=== PATIENT | male | born 1945 | race Caucasian/White ===

== ENCOUNTER 2017-11-09 21:08 | Inpatient (IN) ==
[2017-11-09] MEDS ORDERED: HYOSCYAMINE 0.5 MG/1 ML AMP IV STA (22:20)
[2017-11-09] MEDS ORDERED: SODIUM CHLORIDE 0.9% 500 ML IV STA (22:20)
[2017-11-09] MEDS ORDERED: PANTOPRAZOLE 40 MG VIAL IV STA (22:20)
[2017-11-09 23:11] LABS: Basophils % 0.1 % (0.0-0.8); Hematocrit 41.1 VOL% (42.0-52.0); Hemoglobin 13.9 GM/DL (14.0-18.0); Immature Granulocytes % 0.3 %; Immature Granulocytes Absolute 0.05 #; Lymphocytes # 0.5 10*3/uL (1.4-4.0); Mean Corpuscular HGB Conc 33.8 GM/DL (32-36); Mean Corpuscular Hemoglobin 30 PG (27-34); Mean Platelet Volume 9.5 FL (9.6-12.0); Monocytes # 1.4 10*3/uL (0.11-0.8); Monocytes % 8.7 % (1.7-12.7); Neutrophils # 13.6 10*3/uL (1.4-7.4); Neutrophils % 87.9 % (38.7-73.9); Platelet Count 292 T/CUMM (130-400); Red Blood Count 4.62 MC/CUMM (3.8-5.5); Red Cell Distribution Width 12.9 % (9.3-17.3); White Blood Count 15.5 T/CUMM (4-12)
[2017-11-09 23:23] LABS: Apearance,Urine CLEAR (Clear); Bilirubin,Urine Negative (Negative); Blood, Urine Negative (Negative); Glucose,Urine (UA) Negative (Negative); Ketones,Urine Negative (Negative); Mucus,Urine Occasional /LPF (Occasional); Nitrite,Urine Negative (Negative); Protein,Urine Negative; Urine Color Amber (Yellow); Urine Specific Gravity 1.008 (1.001-1.035); Urine Urobilinogen < 2.0 EU/DL (0.2-1.0); WBC,Urine 1 /HPF (0-6)
[2017-11-09 23:31] LABS: Alanine Aminotransferase 300 U/L (16-61); Albumin 3.7 G/DL (3.4-5.0); Alkaline Phosphatase 444 U/L (45-117); Aspartate Amino Transferase 173 U/L (0-37); Blood Urea Nitrogen 17 MG/DL (7-18); Glucose 113 MG/DL (74-106); Osmolality,Calculated 277.7 MOS/KG (273-304); Potassium 3.9 MMOL/L (3.5-5.1); Sodium 138 MMOL/L (136-145); Total Protein 7.8 G/DL (6.4-8.3); Troponin I Only < 0.015 NG/ML (0.00-0.045)
[2017-11-10 00:27] LABS: Band Neutrophils 2 % (0-10); Lymphocytes 2 % (20-55); Segmented Neutrophils 88 % (50-85)
[2017-11-10 00:28] LABS: Hypochromasia Slight; Ovalocytes 1+; Platelet Estimate Normal
[2017-11-10 00:29] LABS: Total Cells Counted 100
[2017-11-10] MEDS ORDERED: PIPERACILLIN/TAZOBACTAM 4,500 MG in SODIUM CHLORIDE 0.9% 100 ML IV STA (01:09)
[2017-11-10] MEDS ORDERED: ONDANSETRON 4 MG/2 ML VIAL IV PRN (01:33)
[2017-11-10] MEDS: SODIUM CHLORIDE 0.9% 1,000 ML IV SCH ×2 (03:16→15:07)
[2017-11-10] MEDS: LEVOFLOXACIN INJ 500 MG in PREMIX 1 EACH IV SCH (03:28)
[2017-11-10 05:35] LABS: Basophils % 0.1 % (0.0-0.8); Hematocrit 35.9 VOL% (42.0-52.0); Hemoglobin 12.1 GM/DL (14.0-18.0); Immature Granulocytes % 0.4 %; Immature Granulocytes Absolute 0.05 #; Lymphocytes # 0.7 10*3/uL (1.4-4.0); Lymphocytes % 6.1 % (21.2-54.2); Mean Corpuscular HGB Conc 33.7 GM/DL (32-36); Mean Corpuscular Hemoglobin 30 PG (27-34); Mean Corpuscular Volume 89.5 FL (87-102); Monocytes # 0.9 10*3/uL (0.11-0.8); Monocytes % 7.1 % (1.7-12.7); Neutrophils # 10.4 10*3/uL (1.4-7.4); Neutrophils % 86.3 % (38.7-73.9); Platelet Count 260 T/CUMM (130-400); Red Blood Count 4.01 MC/CUMM (3.8-5.5); Red Cell Distribution Width 12.7 % (9.3-17.3)
[2017-11-10 06:10] LABS: Albumin 2.9 G/DL (3.4-5.0); Bilirubin,Total 4.6 MG/DL (0.2-1.0); Calcium 8.3 MG/DL (8.5-10.1); Osmolality,Calculated 281.4 MOS/KG (273-304); VLDL CHOLESTEROL 13.2 MG/DL
[2017-11-10] MEDS: PANTOPRAZOLE 40 MG VIAL IV SCH (09:55)
[2017-11-10] MEDS: RAMIPRIL 5 MG CAPSULE PO SCH (09:57)
[2017-11-10] MEDS: METOPROLOL TARTRATE 100 MG TABLET PO SCH (09:57)
[2017-11-10] MEDS: MORPHINE 4 MG/1 ML VIAL IV PRN (09:58)
[2017-11-10] MEDS ORDERED: ASCORBIC ACID 500 MG TABLET PO SCH (21:00)
[2017-11-10] MEDS: ASCORBIC ACID 500 MG TABLET PO SCH (21:36)
[2017-11-10] MEDS: MAGNESIUM CHLORIDE 64 MG TABLET PO SCH (21:36)
[2017-11-11] MEDS: SODIUM CHLORIDE 0.9% 1,000 ML IV SCH ×3 (01:07→17:38)
[2017-11-11] MEDS: LEVOFLOXACIN INJ 500 MG in PREMIX 1 EACH IV SCH (02:55)
[2017-11-11 04:56] LABS: Basophils % 0.3 % (0.0-0.8); Eosinophils % 0.3 % (0.00-10.9); Hematocrit 33.8 VOL% (42.0-52.0); Hemoglobin 11.2 GM/DL (14.0-18.0); Immature Granulocytes % 0.6 %; Immature Granulocytes Absolute 0.04 #; Lymphocytes # 0.7 10*3/uL (1.4-4.0); Lymphocytes % 10.7 % (21.2-54.2); Mean Corpuscular HGB Conc 33.1 GM/DL (32-36); Mean Corpuscular Hemoglobin 30 PG (27-34); Mean Corpuscular Volume 90.1 FL (87-102); Mean Platelet Volume 9.9 FL (9.6-12.0); Monocytes # 0.7 10*3/uL (0.11-0.8); Monocytes % 9.7 % (1.7-12.7); Neutrophils # 5.4 10*3/uL (1.4-7.4); Neutrophils % 78.4 % (38.7-73.9); Platelet Count 244 T/CUMM (130-400); Red Blood Count 3.75 MC/CUMM (3.8-5.5); Red Cell Distribution Width 13.1 % (9.3-17.3); White Blood Count 6.9 T/CUMM (4-12)
[2017-11-11 05:28] LABS: Calcium 7.9 MG/DL (8.5-10.1); Osmolality,Calculated 280.3 MOS/KG (273-304); Potassium 3.5 MMOL/L (3.5-5.1)
[2017-11-11 07:53] LABS: Albumin 2.7 G/DL (3.4-5.0); Bilirubin,Direct 0.86 MG/DL (0.0-0.20); Bilirubin,Indirect 0.7 MG/DL (0.0-1.0); Bilirubin,Total 1.6 MG/DL (0.2-1.0); Total Protein 5.7 G/DL (6.4-8.3)
[2017-11-11] MEDS: ASPIRIN EC 81 MG TABLET PO SCH (09:52)
[2017-11-11] MEDS: MAGNESIUM CHLORIDE 64 MG TABLET PO SCH ×2 (09:52→21:07)
[2017-11-11] MEDS: METOPROLOL TARTRATE 100 MG TABLET PO SCH (09:52)
[2017-11-11] MEDS: RAMIPRIL 5 MG CAPSULE PO SCH (09:52)
[2017-11-11] MEDS: ASCORBIC ACID 500 MG TABLET PO SCH ×2 (09:52→21:07)
[2017-11-11] MEDS: PANTOPRAZOLE 40 MG VIAL IV SCH (11:09)
[2017-11-11] MEDS: LACTATED RINGERS 1,000 ML IV SCH (13:00)
[2017-11-12] MEDS: LEVOFLOXACIN INJ 500 MG in PREMIX 1 EACH IV SCH (03:37)
[2017-11-12 03:40] LABS: Albumin 2.7 G/DL (3.4-5.0); Bilirubin,Direct 0.65 MG/DL (0.0-0.20); Bilirubin,Indirect 0.5 MG/DL (0.0-1.0); Bilirubin,Total 1.1 MG/DL (0.2-1.0); Total Protein 5.8 G/DL (6.4-8.3)
[2017-11-12] MEDS: METOPROLOL TARTRATE 100 MG TABLET PO SCH (09:37)
[2017-11-12] MEDS: ASPIRIN EC 81 MG TABLET PO SCH (09:37)
[2017-11-12] MEDS: RAMIPRIL 5 MG CAPSULE PO SCH (09:37)
[2017-11-12] MEDS: MAGNESIUM CHLORIDE 64 MG TABLET PO SCH ×2 (09:37→21:11)
[2017-11-12] MEDS: ASCORBIC ACID 500 MG TABLET PO SCH ×2 (09:37→21:11)
[2017-11-12] MEDS: PANTOPRAZOLE 40 MG VIAL IV SCH (09:41)
[2017-11-12] MEDS: SODIUM CHLORIDE 0.9% 1,000 ML IV SCH ×2 (12:05→21:12)
[2017-11-12] MEDS: LACTATED RINGERS 1,000 ML IV SCH (12:06)
[2017-11-13] MEDS: LEVOFLOXACIN INJ 500 MG in PREMIX 1 EACH IV SCH (03:20)
[2017-11-13 06:03] LABS: Osmolality,Calculated 284.1 MOS/KG (273-304); Potassium 3.5 MMOL/L (3.5-5.1)
[2017-11-13 09:00] LABS: Basophils % 0.3 % (0.0-0.8); Eosinophils % 0.3 % (0.00-10.9); Hemoglobin 13.4 GM/DL (14.0-18.0); Immature Granulocytes % 0.2 %; Immature Granulocytes Absolute 0.01 #; Lymphocytes % 16.9 % (21.2-54.2); Mean Corpuscular HGB Conc 35.3 GM/DL (32-36); Mean Corpuscular Hemoglobin 30 PG (27-34); Mean Corpuscular Volume 85.6 FL (87-102); Mean Platelet Volume 9.7 FL (9.6-12.0); Monocytes # 0.5 10*3/uL (0.11-0.8); Monocytes % 7.6 % (1.7-12.7); Neutrophils # 4.6 10*3/uL (1.4-7.4); Neutrophils % 74.7 % (38.7-73.9); Platelet Count 307 T/CUMM (130-400); Red Blood Count 4.44 MC/CUMM (3.8-5.5); Red Cell Distribution Width 13.2 % (9.3-17.3); White Blood Count 6.2 T/CUMM (4-12)
[2017-11-13] MEDS ORDERED: INDOMETHACIN SUPP 50 MG SUPP RECTAL ONE (09:00)
[2017-11-13 09:23] LABS: PT Patient Result 10.3 SECS
[2017-11-13] MEDS ORDERED: MIDAZOLAM 2 MG/2 ML VIAL ONE (09:47)
[2017-11-13] MEDS: SODIUM CHLORIDE 0.9% 1,000 ML IV SCH (09:47)
[2017-11-13] MEDS ORDERED: fentaNYL 100 MCG/2 ML VIAL ONE (09:47)
[2017-11-13] MEDS: PANTOPRAZOLE 40 MG VIAL IV SCH (10:22)
[2017-11-13] MEDS ORDERED: ONDANSETRON 4 MG/2 ML VIAL ONE (10:45)
[2017-11-13] MEDS ORDERED: PROPOFOL 200 MG/20 ML VIAL IV ONE (10:45)
[2017-11-13] MEDS ORDERED: ROCURONIUM 100 MG/10 ML VIAL IV ONE (10:45)
[2017-11-13] MEDS ORDERED: LIDOCAINE 1% 5 ML VIAL ONE (10:45)
[2017-11-13] MEDS ORDERED: SUCCINYLCHOLINE 200 MG/10 ML VIAL ONE (10:45)
[2017-11-13] MEDS ORDERED: SEVOFLURANE 1 UNIT/15 MINUTE INH ONE (14:06)
[2017-11-13 14:46] LABS: Basophils % 0.5 % (0.0-0.8); Eosinophils % 0.2 % (0.00-10.9); Hematocrit 40.2 VOL% (42.0-52.0); Hemoglobin 13.7 GM/DL (14.0-18.0); Immature Granulocytes % 0.2 %; Immature Granulocytes Absolute 0.01 #; Lymphocytes # 0.8 10*3/uL (1.4-4.0); Lymphocytes % 14.7 % (21.2-54.2); Mean Corpuscular HGB Conc 34.1 GM/DL (32-36); Mean Corpuscular Hemoglobin 30 PG (27-34); Mean Corpuscular Volume 88.4 FL (87-102); Mean Platelet Volume 9.3 FL (9.6-12.0); Monocytes # 0.5 10*3/uL (0.11-0.8); Monocytes % 8.2 % (1.7-12.7); Neutrophils # 4.2 10*3/uL (1.4-7.4); Neutrophils % 76.2 % (38.7-73.9); Platelet Count 297 T/CUMM (130-400); Red Blood Count 4.55 MC/CUMM (3.8-5.5); Red Cell Distribution Width 13.1 % (9.3-17.3); White Blood Count 5.5 T/CUMM (4-12)
[2017-11-13 15:11] LABS: PT Patient Result 10.3 SECS
[2017-11-13] MEDS: ASPIRIN EC 81 MG TABLET PO SCH (17:45)
[2017-11-13] MEDS: MAGNESIUM CHLORIDE 64 MG TABLET PO SCH ×2 (17:45→21:01)
[2017-11-13] MEDS: ASCORBIC ACID 500 MG TABLET PO SCH ×2 (17:45→21:01)
[2017-11-13] MEDS: METOPROLOL TARTRATE 100 MG TABLET PO SCH (17:45)
[2017-11-13] MEDS: RAMIPRIL 5 MG CAPSULE PO SCH (17:45)
[2017-11-13] MEDS: LACTATED RINGERS 1,000 ML IV SCH ×2 (17:56→23:27)
[2017-11-14] MEDS: LEVOFLOXACIN INJ 500 MG in PREMIX 1 EACH IV SCH (04:50)
[2017-11-14] MEDS: SODIUM CHLORIDE 0.9% 1,000 ML IV SCH (06:25)
[2017-11-14] MEDS ORDERED: LIDOCAINE 1%/EPI INJ 20 ML VIAL ONE (06:38)
[2017-11-14] MEDS ORDERED: BUPIVACAINE 0.5% 50 ML VIAL ONE (06:38)
[2017-11-14] MEDS ORDERED: TISSUE ADHESIVE 1 EACH APPLICATOR TOP ONE (06:38)
[2017-11-14] MEDS: METOPROLOL TARTRATE 100 MG TABLET PO SCH ×2 (06:45→12:12)
[2017-11-14] MEDS: RAMIPRIL 5 MG CAPSULE PO SCH ×2 (06:46→12:12)
[2017-11-14] MEDS ORDERED: SEVOFLURANE 1 UNIT/15 MINUTE INH ONE (09:05)
[2017-11-14] MEDS ORDERED: MIDAZOLAM 2 MG/2 ML VIAL ONE (09:05)
[2017-11-14] MEDS ORDERED: fentaNYL 100 MCG/2 ML VIAL ONE (09:05)
[2017-11-14] MEDS ORDERED: PROPOFOL 200 MG/20 ML VIAL IV ONE (09:05)
[2017-11-14] MEDS ORDERED: ACETAMINOPHEN 1,000 MG/100 ML VIAL IV ONE (09:06)
[2017-11-14] MEDS ORDERED: PHENYLEPHRINE 1 MG/10 ML SYRINGE IV ONE (09:06)
[2017-11-14] MEDS ORDERED: ONDANSETRON 4 MG/2 ML VIAL ONE ×2 (09:06→09:36)
[2017-11-14] MEDS ORDERED: GLYCOPYRROLATE 0.4 MG/2 ML VIAL ONE (09:06)
[2017-11-14] MEDS ORDERED: NEOSTIGMINE 10 MG/10 ML VIAL ONE (09:06)
[2017-11-14] MEDS ORDERED: LACTATED RINGERS 1,000 ML IV ONE (09:06)
[2017-11-14] MEDS ORDERED: KETOROLAC 30 MG/1 ML VIAL ONE (09:06)
[2017-11-14] MEDS ORDERED: ROCURONIUM 100 MG/10 ML VIAL IV ONE (09:06)
[2017-11-14] MEDS ORDERED: ONDANSETRON 4 MG/2 ML VIAL IV PRN (09:16)
[2017-11-14] MEDS ORDERED: HYDROmorphone 2 MG/1 ML VIAL IV PRN (09:16)
[2017-11-14] MEDS ORDERED: LACTATED RINGERS 1,000 ML IV SCH (09:30)
[2017-11-14] MEDS ORDERED: MORPHINE 10 MG/1 ML VIAL ONE (09:36)
[2017-11-14] MEDS: MORPHINE 10 MG/1 ML VIAL IV PRN ×3 (09:40→10:00)
[2017-11-14] MEDS: ASPIRIN EC 81 MG TABLET PO SCH (12:12)
[2017-11-14] MEDS: MAGNESIUM CHLORIDE 64 MG TABLET PO SCH ×2 (12:12→20:17)
[2017-11-14] MEDS: PANTOPRAZOLE 40 MG VIAL IV SCH (12:12)
[2017-11-14] MEDS: ASCORBIC ACID 500 MG TABLET PO SCH ×2 (12:12→20:17)
[2017-11-14] MEDS: MORPHINE 4 MG/1 ML VIAL IV PRN (18:40)
[2017-11-14] MEDS: LACTATED RINGERS 1,000 ML IV SCH (23:29)
[2017-11-15] MEDS: SODIUM CHLORIDE 0.9% 1,000 ML IV SCH (02:17)
[2017-11-15] MEDS: LEVOFLOXACIN INJ 500 MG in PREMIX 1 EACH IV SCH (03:30)
[2017-11-15 03:55] LABS: Basophils % 0.3 % (0.0-0.8); Eosinophils % 0.1 % (0.00-10.9); Hematocrit 35.9 VOL% (42.0-52.0); Hemoglobin 12.3 GM/DL (14.0-18.0); Immature Granulocytes % 0.4 %; Immature Granulocytes Absolute 0.04 #; Lymphocytes # 0.9 10*3/uL (1.4-4.0); Lymphocytes % 8.4 % (21.2-54.2); Mean Corpuscular HGB Conc 34.3 GM/DL (32-36); Mean Corpuscular Hemoglobin 30 PG (27-34); Mean Corpuscular Volume 87.1 FL (87-102); Mean Platelet Volume 10.2 FL (9.6-12.0); Monocytes # 0.8 10*3/uL (0.11-0.8); Monocytes % 7.9 % (1.7-12.7); Neutrophils # 8.4 10*3/uL (1.4-7.4); Neutrophils % 82.9 % (38.7-73.9); Platelet Count 264 T/CUMM (130-400); Red Blood Count 4.12 MC/CUMM (3.8-5.5); Red Cell Distribution Width 13.2 % (9.3-17.3); White Blood Count 10.1 T/CUMM (4-12)
[2017-11-15 04:20] LABS: Albumin 2.7 G/DL (3.4-5.0); Bilirubin,Total 1.4 MG/DL (0.2-1.0); Calcium 8.3 MG/DL (8.5-10.1); Potassium 3.8 MMOL/L (3.5-5.1); Total Protein 5.6 G/DL (6.4-8.3)
[2017-11-15] MEDS: LACTATED RINGERS 1,000 ML IV SCH (05:04)
[2017-11-15] MEDS: METOPROLOL TARTRATE 100 MG TABLET PO SCH (08:22)
[2017-11-15] MEDS: MAGNESIUM CHLORIDE 64 MG TABLET PO SCH (08:22)
[2017-11-15] MEDS: ASPIRIN EC 81 MG TABLET PO SCH (08:22)
[2017-11-15] MEDS: PANTOPRAZOLE 40 MG VIAL IV SCH (08:22)
[2017-11-15] MEDS: ASCORBIC ACID 500 MG TABLET PO SCH (08:22)
[2017-11-15] MEDS: RAMIPRIL 5 MG CAPSULE PO SCH (08:22)
[2017-11-15 11:35] VITALS: BP 127/65
== END 2017-11-15 13:02 | disposition home or self-care (01) | DRG 417 ==
LOC: N.ED 21:08 → N.EDINP 11-10 01:33 → SUATTDRO 11-10 01:33 → N.EDINP 11-10 02:42 → N.3E 11-10 02:56
PROVIDERS: ADMIT Internal Medicine; ATTEND Internal Medicine
PROC: ERCPWSP (ICD-10-PCS; 2017-11-13 09:35)
PROC: LAPCHOL (2017-11-14 07:15)